=== PATIENT | female | born 1935 | race Caucasian/White ===

== ENCOUNTER 2017-12-24 16:40 | Inpatient (IN) | payer MEDICARE ==
[~2017-12-24] VITALS: Ht 154.9 cm; Wt 62.1 kg
[2017-12-24] MEDS ORDERED: Z GUARD REMEDY PASTE 57 GM TUBE TOP PRN (17:45)
[2017-12-24] MEDS ORDERED: ROSU5TAB PO (18:29)
[2017-12-24] MEDS ORDERED: WARF-68 PO (18:29)
[2017-12-24] MEDS ORDERED: LEVO50TA8 PO (18:29)
[2017-12-24 18:37] VITALS: BP 113/59
--- NOTE | 2017-12-24 18:58 | NUR ---
pt admitted from stow. report taken from ying KENNY. pt vitals assessed and stable. all pertinent assessments done. swab done . pt seen by md and states he will do the med recon. will endorse to table games shift manager nrse.
--- NOTE | 2017-12-24 19:55 | NUR ---
Pt resting comfortably in bed. AAO x3. No acute distress noted. No c/o pain or discomfort. Bruises on some parts of the body. Pictures taken. Safety measures maintained. Call light and personal belongings within reach. Will continue to monitor.
[2017-12-24 20:13] VITALS: BP 120/62
[2017-12-24] MEDS: ATORVASTATIN 10 MG TABLET PO SCH (21:12)
--- NOTE | 2017-12-25 05:45 | NUR ---
Pt slept comfortably at night. VSS. Meds given per MD's order. Pt compliant with care. All needs attended to promptly. Will endorse to day shift RN. Continue to monitor.
[2017-12-25] MEDS: LEVOTHYROXINE SODIUM 50 MCG TABLET PO SCH (06:31)
[2017-12-25 07:02] LABS: BASOPHILS # (AUTO) 0.1 K/uL (0.0-8.0); EOSINOPHILS # (AUTO) 0.3 K/uL (0.0-0.7); EOSINOPHILS % (AUTO) 3.9 % (0.0-7.0); HEMATOCRIT 30.9 % (31.2-41.9); HEMOGLOBIN 10.5 g/dL (10.9-14.3); LYMPHOCYTES % (AUTO) 11.3 % (20.5-51.5); MEAN CORPUSCULAR HEMOGLOBIN 33.8 uug (24.7-32.8); MEAN CORPUSCULAR HGB CONC 34 g/dL (32.3-35.6); MEAN CORPUSCULAR VOLUME 99.3 fL (75.5-95.3); MONOCYTES # (AUTO) 0.8 K/uL (2.0-10.0); NEUTROPHILS # (AUTO) 6.5 K/uL (1.8-8.9); NEUTROPHILS % (AUTO) 74.8 % (38.5-71.5); PLATELET COUNT (AUTO) 218 K/uL (179-408); RED BLOOD CELL COUNT(AUTO) 3.11 MIL/uL (3.63-4.92); WHITE BLOOD COUNT (AUTO) 8.7 K/uL (3.8-11.8)
[2017-12-25 07:10] VITALS: BP 120/71
[2017-12-25 07:29] LABS: MAGNESIUM 1.7 mg/dL (1.8-2.4); PHOSPHOROUS 3.4 mg/dL (2.5-4.9)
[2017-12-25 07:31] LABS: ALANINE AMINOTRANSFERASE 33 U/L (14-59); ALKALINE PHOSPHATASE 56 U/L (50-136); ASPARTATE AMINOTRANSFERASE 31 U/L (15-37); BILIRUBIN,TOTAL 1.3 mg/dL (0.2-1.0); CARBON DIOXIDE 28 mmol/L (21-32); CHLORIDE 107 mmol/L (98-107); CREATININE 0.9 mg/dL (0.6-1.3); GLUCOSE 90 mg/dL (74-106); POTASSIUM 3.9 mmol/L (3.5-5.1); TOTAL PROTEIN, SERUM 5.7 g/dL (6.4-8.2); UREA NITROGEN, BLOOD 20 mg/dL (7-18)
[2017-12-25] MEDS ORDERED: LEVOTHYROXINE SODIUM 50 MCG TABLET PO SCH (09:00)
[2017-12-25] MEDS ORDERED: Medication Not On Formulary EA (Rosuvastatin Calcium (Crestor) 5 MG) PO SCH (09:00)
--- NOTE | 2017-12-25 10:10 | NUR ---
Pt seen on the wheelchair with physical therapist on the floor.
[2017-12-25] MEDS: BOOST PLUS 237 ML LIQUID (RICH CHOCOLATE) PO SCH ×2 (12:34→16:33)
[2017-12-25] MEDS ORDERED: MAGNESIUM OXIDE 400 MG TABLET PO ONE (13:15)
[2017-12-25] MEDS ORDERED: WARF-68 PO (14:25)
[2017-12-25] MEDS ORDERED: WARF4TAB72 PO (14:25)
--- NOTE | 2017-12-25 16:23 | NUR ---
Spoke with Dr. Corona on the telephone regarding pt's complaint of generalized pain. New orders received and carried out.
[2017-12-25] MEDS: ACETAMINOPHEN 325 MG TABLET PO PRN (16:31)
[2017-12-25] MEDS ORDERED: WARFARIN SODIUM 2 MG TABLET PO SCH ×2 (17:00)
--- NOTE | 2017-12-25 19:35 | NUR ---
Received patient in bed, awake and verbally responsive. Vital signs taken and recorded. No sob, or acute distress noted. Denies of pain at this time. Safety measures provided. Bed placed in low position. Bed alarm on. Call light within reach. will continue to monitor patient.
[2017-12-25] MEDS: ATORVASTATIN 10 MG TABLET PO SCH (20:41)
[2017-12-25] MEDS: ENOXAPARIN SODIUM 60 MG/0.6 ML DISP.SYRIN SQ SCH ×2 (20:45→21:00)
[2017-12-25 20:57] VITALS: BP 106/56
--- NOTE | 2017-12-25 21:03 | NUR ---
Patient refused the lovenox injection. Seen by MD Dr. Miles. Per , hold lovenox injection.
[2017-12-26] MEDS: LEVOTHYROXINE SODIUM 50 MCG TABLET PO SCH (06:32)
[2017-12-26 08:00] VITALS: BP 134/73
[2017-12-26] MEDS: ENOXAPARIN SODIUM 60 MG/0.6 ML DISP.SYRIN SQ SCH ×2 (09:00→20:27)
[2017-12-26] MEDS: BOOST PLUS 237 ML LIQUID (RICH CHOCOLATE) PO SCH ×2 (09:34→17:52)
--- NOTE | 2017-12-26 10:23 | NUR ---
PATIENT NOTED SITTING UP ON SIDE OF THE BED, NO COMPLAINTS OF PAIN NO SIGNS OF DISTRESS NOTED, CALL LIGHT IN REACH, BED LOCKED AND IN LOWEST POSITION, X2 BED RAILS, ALL NEEDS MET AT THIS TIME, REFUSED LOVENOX INJECTION FOR AM ADMINISTRATION
--- NOTE | 2017-12-26 14:39 | NUR ---
X-RAY RESULTS OF RIGHT SHOULDER SHOWERS COMMINUTED FRACTURE AND DISLOCATION OF RIGHT CLAVICLE , MD HENAO NOTIFIED WITH ORDERS TO PLACE RIGHT ARM IN SLING AND ORTHO CONSULT
[2017-12-26] MEDS: ACETAMINOPHEN 325 MG TABLET PO PRN ×2 (14:44→20:40)
[2017-12-26] MEDS: WARFARIN SODIUM 4 MG TABLET PO SCH (17:54)
[2017-12-26 19:55] VITALS: BP 109/57
--- NOTE | 2017-12-26 20:00 | NUR ---
Received pt lying comfortably in bed, awake and alert. Daughter at bedside. No acute distress noted. Pt complained of pain on her left antecubital, upon assessment, redness and swelling was noted. MD made aware. Picture taken and placed on chart. All due meds given as ordered and well tolerated. Vital signs stable. Kept clean, dry and comfortable. encouraged to verbalize needs and concerns and to call for assistance if needed. Call light placed within reach. All needs attended.
[2017-12-26] MEDS: ATORVASTATIN 10 MG TABLET PO SCH (20:27)
--- NOTE | 2017-12-26 21:33 | NUR ---
physically impaired teacher MD (Dr. Corona) ordered xray left forearm. Order carried out. Will continue to monitor pt.
--- NOTE | 2017-12-27 05:51 | NUR ---
Patient slept well throughout the shift with no signs/symptoms of acute distress noted. No complaints of pain or discomfort. No SOB. Assisted to the bathroom as needed. Kept clean, dry and comfortable. Call light placed within reach. Safety and fall precautions observed and maintained. All needs attended.
[2017-12-27] MEDS: LEVOTHYROXINE SODIUM 50 MCG TABLET PO SCH (06:30)
--- NOTE | 2017-12-27 07:24 | NUR ---
Patient noted resting in bed with eyes closed arouses easily, no complaints of pain at this time, no distress noted, call light in reach, bed locked and in lowest position, x 2 bed rails, all needs met at this time Addendum: 12/27/17 at 0725 by GAVIN ORTIZ RN sling to right arm in place
[2017-12-27] MEDS: ENOXAPARIN SODIUM 60 MG/0.6 ML DISP.SYRIN SQ SCH ×2 (08:14→20:39)
[2017-12-27] MEDS: BOOST PLUS 237 ML LIQUID (RICH CHOCOLATE) PO SCH ×2 (08:15→17:00)
[2017-12-27 08:17] VITALS: BP 134/83
[2017-12-27] MEDS: ACETAMINOPHEN 325 MG TABLET PO PRN ×2 (09:39→23:21)
--- NOTE | 2017-12-27 15:10 | NUR ---
x-ray to left forearm concludes that there aren't any fractures or dislocations, MD Corona notified of results and ordered Bactrim DS 1 tab PO BID for 7 days
[2017-12-27] MEDS: WARFARIN SODIUM 4 MG TABLET PO SCH (19:07)
--- NOTE | 2017-12-27 19:35 | NUR ---
Received pt in bed, AAO x 3 watching television. Verbally responsive and able to make needs known. Denies pain or discomfort at this time. No acute distress noted. All safety measures and fall precautions maintained. Call light and all personal belongings within reach. Will continue to monitor.
[2017-12-27 20:30] VITALS: BP 141/66
[2017-12-27] MEDS: ATORVASTATIN 10 MG TABLET PO SCH (20:38)
[2017-12-27] MEDS: SULFAMETH/TRIMETH 800/160 MG TABLET PO SCH (20:38)
[2017-12-28] MEDS: LEVOTHYROXINE SODIUM 50 MCG TABLET PO SCH (06:30)
[2017-12-28 08:00] VITALS: BP 120/75
--- NOTE | 2017-12-28 08:00 | NUR ---
Received patient awake alert x4. Resting in bed. Denies any pain. Arm sling over right shoulder in place. Morning care done. Adult brief changed with minimal assistance. Non in any distress, call light within reach.
[2017-12-28] MEDS: SULFAMETH/TRIMETH 800/160 MG TABLET PO SCH ×2 (08:29→20:36)
[2017-12-28] MEDS: BOOST PLUS 237 ML LIQUID (RICH CHOCOLATE) PO SCH ×2 (08:29→17:49)
[2017-12-28] MEDS: ENOXAPARIN SODIUM 60 MG/0.6 ML DISP.SYRIN SQ SCH ×2 (08:30→20:42)
--- NOTE | 2017-12-28 10:00 | NUR ---
Up with occupational therapy tolerating well. Instructed to maintain non-weight bearing status on right shoulder.
--- NOTE | 2017-12-28 13:45 | NUR ---
INTERDISCIPLINARY TEAM CONFERENCE
[2017-12-28] MEDS ORDERED: WARFARIN SODIUM 2 MG TABLET PO SCH (17:37)
[2017-12-28] MEDS: WARFARIN SODIUM 2 MG TABLET PO SCH (17:47)
--- NOTE | 2017-12-28 18:42 | NUR ---
Patient resting in bed. Not in any pain. Assisted to needs promptly. Call light within reach.
[2017-12-28 19:30] VITALS: BP 114/60
--- NOTE | 2017-12-28 19:30 | NUR ---
Received pt in bed, appearing to be asleep but easily arousable to verbal stimuli and light touch. Verbally responsive and able to make needs known. No acute distress noted. Denies pain or discomfort at this time. All safety measures and fall precautions maintained. Call light and all personal belongings within reach. Will continue to monitor.
[2017-12-28] MEDS: ATORVASTATIN 10 MG TABLET PO SCH (20:36)
[2017-12-29] MEDS: LEVOTHYROXINE SODIUM 50 MCG TABLET PO SCH (06:37)
[2017-12-29] MEDS: SULFAMETH/TRIMETH 800/160 MG TABLET PO SCH ×2 (08:06→20:23)
[2017-12-29] MEDS: BOOST PLUS 237 ML LIQUID (RICH CHOCOLATE) PO SCH ×2 (08:12→16:18)
[2017-12-29] MEDS: ENOXAPARIN SODIUM 60 MG/0.6 ML DISP.SYRIN SQ SCH ×2 (08:12→20:25)
[2017-12-29 08:20] VITALS: BP 119/69
--- NOTE | 2017-12-29 09:33 | NUR ---
SBAR report received, board updated. Pt assessed, denies pain. Reminded Pt to keep right arm in sling and use left to eat. Pt compliant with all morning medications. Will follow up with Pt request to shower. All needs met. Call light within reach. Will continue to monitor.
[2017-12-29] MEDS: WARFARIN SODIUM 2 MG TABLET PO SCH (16:23)
--- NOTE | 2017-12-29 18:44 | NUR ---
Pt resting in bed, assisted to reposition for comfort. Pt dry and clean. Pt compliant with routine medication administration. All needs attended to. Will continue to monitor and endorse to oncoming maintenance technician 3rd shift.
--- NOTE | 2017-12-29 19:30 | NUR ---
Received patient in bed. Alert and verbally responsive. Able to make needs known. Denies any pain and discomfort. No acute distress. No SOB. Sling applied to right forearm. No c/o pain and discomfort at site at this time. Assisted to bathroom. Tolerated well. All needs attended to promptly. Call light within reach. Will continue to monitor.
[2017-12-29 20:00] VITALS: BP 134/65
[2017-12-29] MEDS: ATORVASTATIN 10 MG TABLET PO SCH (20:23)
--- NOTE | 2017-12-30 06:15 | NUR ---
Patient slept comfortably throughout the night. No c/o pain and discomfort. No acute distress. No SOB. Assisted to the bathroom when needed. Kept clean and dry. All needs attended to promptly. Call light within reach. Will continue to monitor.
[2017-12-30] MEDS: LEVOTHYROXINE SODIUM 50 MCG TABLET PO SCH (06:34)
[2017-12-30 07:30] VITALS: BP 126/67
[2017-12-30] MEDS: BOOST PLUS 237 ML LIQUID (RICH CHOCOLATE) PO SCH ×2 (08:36→16:43)
[2017-12-30] MEDS: SULFAMETH/TRIMETH 800/160 MG TABLET PO SCH ×2 (08:36→21:19)
[2017-12-30] MEDS: ENOXAPARIN SODIUM 60 MG/0.6 ML DISP.SYRIN SQ SCH (08:38)
--- NOTE | 2017-12-30 09:43 | NUR ---
pt seen on rounding. pt continues to be stable. vitals wnl. sling applied. non weight bearing on arm. pt walks with cane. pt took meds whole. pt given lovenox injection. awaiting labs. pt participated in therapy and ate breakfast. will continue to monitor.
[2017-12-30] MEDS: WARFARIN SODIUM 2 MG TABLET PO SCH (16:43)
--- NOTE | 2017-12-30 19:00 | NUR ---
Received patient in bed. Alert and verbally responsive. Able to make needs known. Denies any pain and discomfort. No acute distress. No SOB. Sling applied to right arm. Remind patient that she needs to keep arm in sling, verbalizes understanding but arm still comes out of it. Ambulates with walker. Assisted to the bathroom. Tolerated well. All needs attended to promptly. Call light within reach. Will continue to monitor.
[2017-12-30 20:00] VITALS: BP 129/77
[2017-12-30] MEDS: ATORVASTATIN 10 MG TABLET PO SCH (21:16)
[2017-12-31] MEDS: ACETAMINOPHEN 325 MG TABLET PO PRN (06:38)
[2017-12-31] MEDS: PANTOPRAZOLE SODIUM 40 MG TABLET.DR PO SCH (06:38)
[2017-12-31] MEDS: LEVOTHYROXINE SODIUM 50 MCG TABLET PO SCH (06:38)
--- NOTE | 2017-12-31 07:00 | NUR ---
Patient slept intermittently throughout the night. Tylenol given for c/o back pain. Assisted to bathroom with needed. Amb with FWW. Kept clean and dry. All needs attended to promptly. Call light within reach. Will continue to monitor.
[2017-12-31 07:44] LABS: BASOPHILS # (AUTO) 0.1 K/uL (0.0-8.0); BASOPHILS % (AUTO) 1.2 % (0.0-2.0); EOSINOPHILS # (AUTO) 0.2 K/uL (0.0-0.7); EOSINOPHILS % (AUTO) 2.1 % (0.0-7.0); HEMATOCRIT 29.8 % (31.2-41.9); HEMOGLOBIN 10.2 g/dL (10.9-14.3); LYMPHOCYTES # (AUTO) 0.6 K/uL (20.0-40.0); LYMPHOCYTES % (AUTO) 7.1 % (20.5-51.5); MEAN CORPUSCULAR HEMOGLOBIN 34.1 uug (24.7-32.8); MEAN CORPUSCULAR HGB CONC 34 g/dL (32.3-35.6); MEAN CORPUSCULAR VOLUME 99.7 fL (75.5-95.3); MONOCYTES # (AUTO) 0.9 K/uL (2.0-10.0); MONOCYTES % (AUTO) 10.9 % (0.0-11.0); NEUTROPHILS # (AUTO) 6.4 K/uL (1.8-8.9); NEUTROPHILS % (AUTO) 78.7 % (38.5-71.5); RED BLOOD CELL COUNT(AUTO) 2.99 MIL/uL (3.63-4.92); WHITE BLOOD COUNT (AUTO) 8.1 K/uL (3.8-11.8)
[2017-12-31 08:00] LABS: PLATELET COUNT (AUTO) 285 K/uL (179-408)
[2017-12-31 08:20] LABS: ALANINE AMINOTRANSFERASE 75 U/L (14-59); ALKALINE PHOSPHATASE 101 U/L (50-136); ASPARTATE AMINOTRANSFERASE 96 U/L (15-37); BILIRUBIN,TOTAL 0.9 mg/dL (0.2-1.0); CARBON DIOXIDE 26 mmol/L (21-32); CHLORIDE 104 mmol/L (98-107); CREATININE 1.1 mg/dL (0.6-1.3); GLUCOSE 95 mg/dL (74-106); MAGNESIUM 2.1 mg/dL (1.8-2.4); PHOSPHOROUS 3.5 mg/dL (2.5-4.9); POTASSIUM 4.1 mmol/L (3.5-5.1); TOTAL PROTEIN, SERUM 6.1 g/dL (6.4-8.2); UREA NITROGEN, BLOOD 19 mg/dL (7-18)
[2017-12-31] MEDS: FERROUS GLUCONATE 324 MG TABLET PO SCH (08:41)
[2017-12-31] MEDS: SULFAMETH/TRIMETH 800/160 MG TABLET PO SCH ×2 (08:41→21:21)
[2017-12-31] MEDS: BOOST PLUS 237 ML LIQUID (RICH CHOCOLATE) PO SCH ×2 (08:45→17:17)
[2017-12-31] MEDS: WARFARIN SODIUM 2 MG TABLET PO SCH (17:17)
--- NOTE | 2017-12-31 18:59 | NUR ---
Pt comfortably sitting in bed, repositioned for comfort. Reinforced need to use sling. VS WNL. All safety and comfort needs met. No distress on this shift. Call light within reach. Will continue to monitor and endorse to oncoming manual equipment mechanic.
[2017-12-31 19:30] VITALS: BP 108/65
--- NOTE | 2017-12-31 20:00 | NUR ---
received pt lying on bed comfortably, awake and alert with no apparent distress noted. No complaints of pain or discomfort. Breathing even and unlabored with normal respiration. All due meds given as ordered and well tolerated. Assisted to the bathroom as needed. Call light within reach. All needs attended.
[2017-12-31] MEDS: ATORVASTATIN 10 MG TABLET PO SCH (21:21)
[2018-01-01] MEDS: PANTOPRAZOLE SODIUM 40 MG TABLET.DR PO SCH (06:29)
[2018-01-01] MEDS: LEVOTHYROXINE SODIUM 50 MCG TABLET PO SCH (06:29)
[2018-01-01 08:00] VITALS: BP 120/67
[2018-01-01] MEDS: FERROUS GLUCONATE 324 MG TABLET PO SCH (08:16)
[2018-01-01] MEDS: BOOST PLUS 237 ML LIQUID (RICH CHOCOLATE) PO SCH ×2 (08:16→17:01)
[2018-01-01] MEDS: SULFAMETH/TRIMETH 800/160 MG TABLET PO SCH ×2 (08:16→20:09)
--- NOTE | 2018-01-01 09:00 | NUR ---
PT IS STABLE Addendum: 01/01/18 at 1056 by ELIZABETH ALLEN RN WRONG PT
--- NOTE | 2018-01-01 11:13 | NUR ---
SBAR report received, board updated. Pt assessed, awake, alert, and oriented x3. Pt denies pain or SOB. Pt compliant with medication administration. Plan for today discussed. Pt reports willingness to actively participate with therapies. Sling repositioned. Bed in low, locked position with side rails up x2. All comfort and safety measures implemented. Call light within reach. Will continue to monitor.
[2018-01-01] MEDS ORDERED: WARFARIN SODIUM 4 MG TABLET PO ONE (17:00)
--- NOTE | 2018-01-01 18:56 | NUR ---
Pt sitting comfortably up in bed with daughter at the bedside visiting. Pt able to make needs known. Compliant with routine medication administration. All comfort and safety needs met. Call light placed within reach. Will continue to monitor and endorse to oncoming third shift lieutenant.
[2018-01-01] MEDS: ENOXAPARIN SODIUM 60 MG/0.6 ML DISP.SYRIN SQ SCH (20:09)
[2018-01-01] MEDS: ATORVASTATIN 10 MG TABLET PO SCH (20:10)
[2018-01-01 20:46] VITALS: BP 105/68
--- NOTE | 2018-01-02 03:46 | NUR ---
AAOX4 with periods of forgetfulness. no acute distress noted. quiet night. attended to needs. on lovenox given as ordered. denies any pain nor any discomfort. will monitor patient. slept well throughout the night. voiding well. vital signs stable.
[2018-01-02] MEDS: PANTOPRAZOLE SODIUM 40 MG TABLET.DR PO SCH (06:30)
[2018-01-02] MEDS: LEVOTHYROXINE SODIUM 50 MCG TABLET PO SCH (06:30)
--- NOTE | 2018-01-02 08:35 | NUR ---
Received patient awake, alert x4. Denies any pain. Tolerated breakfast and medications well. Instructed to maintain sling over shoulder and maintain non-weight bearing status.
[2018-01-02] MEDS: BOOST PLUS 237 ML LIQUID (RICH CHOCOLATE) PO SCH ×2 (08:38→17:02)
[2018-01-02] MEDS: ENOXAPARIN SODIUM 60 MG/0.6 ML DISP.SYRIN SQ SCH ×2 (08:38→20:30)
[2018-01-02] MEDS: FERROUS GLUCONATE 324 MG TABLET PO SCH (08:38)
[2018-01-02 08:45] VITALS: BP 115/65
--- NOTE | 2018-01-02 10:03 | NUR ---
Showered with minimum assistance. Morning care done.
--- NOTE | 2018-01-02 14:06 | NUR ---
With family at bedside. Patient refuses to have therapy today. No pain noted, not in distress. Vital signs WNL.
[2018-01-02] MEDS ORDERED: BISACODYL 5 MG TABLET.DR PO PRN (15:45)
--- NOTE | 2018-01-02 16:16 | NUR ---
No bowel movement. Patient claimed she had a bowel movement yesterday. Offered Dulcolax, patient refused.
[2018-01-02] MEDS: WARFARIN SODIUM 4 MG TABLET PO SCH (17:02)
[2018-01-02] MEDS: ATORVASTATIN 10 MG TABLET PO SCH (20:28)
[2018-01-02 20:34] VITALS: BP 107/65
--- NOTE | 2018-01-02 21:43 | NUR ---
awake alert and oriented but forgetful at times. no acute distress noted. patient on blood thinner, on coumadin and lovenox. needs attended. seen by Dr Serrano. Was aware of PT/INR results. No order made. Kept comfortable. tolerated po meds well. RUE sling on but sometimes non-compliant, always removed the sling off the shoulder. voiding well.
--- NOTE | 2018-01-03 05:33 | NUR ---
quiet night. slept most of the shift. no acute distress noted. kept comfortable. will monitor patient. denies any pain nor any discomfort.
[2018-01-03] MEDS: PANTOPRAZOLE SODIUM 40 MG TABLET.DR PO SCH (06:30)
[2018-01-03] MEDS: LEVOTHYROXINE SODIUM 50 MCG TABLET PO SCH (06:31)
[2018-01-03 08:02] LABS: BASOPHILS # (AUTO) 0.1 K/uL (0.0-8.0); BASOPHILS % (AUTO) 1.1 % (0.0-2.0); EOSINOPHILS # (AUTO) 0.2 K/uL (0.0-0.7); EOSINOPHILS % (AUTO) 1.9 % (0.0-7.0); HEMATOCRIT 29.7 % (31.2-41.9); HEMOGLOBIN 10.2 g/dL (10.9-14.3); LYMPHOCYTES # (AUTO) 0.6 K/uL (20.0-40.0); LYMPHOCYTES % (AUTO) 7.8 % (20.5-51.5); MEAN CORPUSCULAR HEMOGLOBIN 34.4 uug (24.7-32.8); MEAN CORPUSCULAR HGB CONC 34 g/dL (32.3-35.6); MONOCYTES # (AUTO) 0.7 K/uL (2.0-10.0); MONOCYTES % (AUTO) 8.2 % (0.0-11.0); NEUTROPHILS # (AUTO) 6.6 K/uL (1.8-8.9); PLATELET COUNT (AUTO) 285 K/uL (179-408); RED BLOOD CELL COUNT(AUTO) 2.97 MIL/uL (3.63-4.92); WHITE BLOOD COUNT (AUTO) 8.1 K/uL (3.8-11.8)
--- NOTE | 2018-01-03 08:15 | NUR ---
Received patient awake, alert x4. Not in any pain, afebrile. Arm sling in place over right shoulder.
[2018-01-03 08:25] LABS: ALANINE AMINOTRANSFERASE 53 U/L (14-59); ALKALINE PHOSPHATASE 119 U/L (50-136); ASPARTATE AMINOTRANSFERASE 49 U/L (15-37); BILIRUBIN,TOTAL 0.9 mg/dL (0.2-1.0); CARBON DIOXIDE 27 mmol/L (21-32); CHLORIDE 104 mmol/L (98-107); CREATININE 1.1 mg/dL (0.6-1.3); GLUCOSE 89 mg/dL (74-106); PHOSPHOROUS 3.6 mg/dL (2.5-4.9); POTASSIUM 4.2 mmol/L (3.5-5.1); TOTAL PROTEIN, SERUM 6.5 g/dL (6.4-8.2)
[2018-01-03 08:36] LABS: UREA NITROGEN, BLOOD 26 mg/dL (7-18)
[2018-01-03] MEDS: FERROUS GLUCONATE 324 MG TABLET PO SCH (08:49)
[2018-01-03] MEDS: ENOXAPARIN SODIUM 60 MG/0.6 ML DISP.SYRIN SQ SCH ×2 (08:51→21:16)
[2018-01-03] MEDS: BOOST PLUS 237 ML LIQUID (RICH CHOCOLATE) PO SCH ×2 (08:52→16:49)
[2018-01-03 09:55] VITALS: BP 92/65
--- NOTE | 2018-01-03 10:58 | NUR ---
With family at bedside. Resting in bed. Bed in low locked position, call light within reach. Encouraged to call for needs.
[2018-01-03] MEDS: ACETAMINOPHEN 325 MG TABLET PO PRN (12:06)
--- NOTE | 2018-01-03 12:18 | NUR ---
Right rib pain rated as 6/10. PRN Tylenol given.
[2018-01-03] MEDS: WARFARIN SODIUM 4 MG TABLET PO SCH (16:48)
--- NOTE | 2018-01-03 18:33 | NUR ---
No bowel movement. Offered Dulcolax PRN. Patient refused. Discussed risks and benefits, but patient still refused.
--- NOTE | 2018-01-03 19:30 | NUR ---
Patient in bed, awake and verbally responsive. Vital signs taken and recorded. No sob, or acute respiratory distress noted. Denies of pain at this time. Seen by Dr. Ginger HUNTER no new orders. Safety measures provided. Bed placed in low position. Bed alarm on. Call light within reach. will continue to monitor patient.
[2018-01-03 19:59] VITALS: BP 104/61
[2018-01-03] MEDS: ATORVASTATIN 10 MG TABLET PO SCH (21:09)
[2018-01-04] MEDS: LEVOTHYROXINE SODIUM 50 MCG TABLET PO SCH (06:16)
[2018-01-04] MEDS: PANTOPRAZOLE SODIUM 40 MG TABLET.DR PO SCH (06:20)
--- NOTE | 2018-01-04 06:21 | NUR ---
Patient refused to take her Protonix 40 mg PO. Explained to the patient the benefits of taking this med and the risks of not taking it, offered 3x but still patient refused. Will endorse to Am shift nurse.
[2018-01-04] MEDS: FERROUS GLUCONATE 324 MG TABLET PO SCH (08:24)
[2018-01-04] MEDS: BOOST PLUS 237 ML LIQUID (RICH CHOCOLATE) PO SCH ×2 (08:24→17:27)
[2018-01-04] MEDS: ENOXAPARIN SODIUM 60 MG/0.6 ML DISP.SYRIN SQ SCH ×2 (08:25→20:29)
[2018-01-04 10:52] VITALS: BP 121/72
[2018-01-04] MEDS ORDERED: WARFARIN SODIUM 3 MG TABLET PO ONE (17:00)
[2018-01-04] MEDS ORDERED: WARFARIN SODIUM 2 MG TABLET PO SCH (17:00)
--- NOTE | 2018-01-04 18:25 | NUR ---
END OF SHIFT NOTES: PATIENT ALERT AND ORIENTED, ABLE TO MAKE NEEDS KNOWN HAS NO ACUTE CHANGES THROUGHOUT THE SHIFT. NO CHANGES IN LOC OR MENTATION. NO S/SX OF INFECTION REMAINED AFEBRILE. PATIENT REMAINED TO BE NON-COMPLIANT WITH HER SLING. EXPLAINED RISKS AND BENEFITS SEVERAL TIMES BUT PATIENT REFUSED TO USE HER SLING. ALSO PATIENT WAS GIVEN COUMADIN 6 MG TAB PO TODAY ORDERED. PATIENT'S DAUGHTER TRISHA WITH TELEPHONE NUMBER: AND INFORMED OF THE DOSAGE. HOURLY ROUNDING DONE. CALL LIGHT WITHIN REACH AT ALL TIMES. BED ALARM ON FOR SAFETY. ENCOURAGED PATIENT TO USE CALL LIGHT WHENEVER ASSISTANCE IS NEEDED. WILL CONTINUE TO MONITOR. WILL ENDORSE TO INCOMING SHIFT.
--- NOTE | 2018-01-04 20:00 | NUR ---
Received pt on bed alert, awake and oriented x3. Pleasant, calm and cooperative to care. No signs/symptoms of distress noted. No complaints of pain or discomfort. No SOB noted. All due meds given as ordered. Vital signs stable. Kept clean, dry and comfortable. Safety and fall precautions maintained. Call light within reach. All needs attended.
[2018-01-04 20:22] VITALS: BP 108/58
[2018-01-04] MEDS: ATORVASTATIN 10 MG TABLET PO SCH (20:27)
[2018-01-05] MEDS: LEVOTHYROXINE SODIUM 50 MCG TABLET PO SCH (06:27)
[2018-01-05] MEDS: PANTOPRAZOLE SODIUM 40 MG TABLET.DR PO SCH (06:28)
--- NOTE | 2018-01-05 07:15 | NUR ---
RECEIVED REPORT FROM STRADDLE BUG NURSE, PATIENT SITTING UP IN BED, NO DISTRESS NOTED. PATIENT REFUSING PT SHE IS DISCHARGING TODAY.
[2018-01-05] MEDS: BOOST PLUS 237 ML LIQUID (RICH CHOCOLATE) PO SCH (08:00)
[2018-01-05 08:28] VITALS: BP 100/84
[2018-01-05] MEDS: FERROUS GLUCONATE 324 MG TABLET PO SCH (09:02)
[2018-01-05] MEDS: ENOXAPARIN SODIUM 60 MG/0.6 ML DISP.SYRIN SQ SCH (09:07)
--- NOTE | 2018-01-05 15:40 | NUR ---
PATIENT WAS DISCHARGED, ALL BELONGINGS ACCOUNTED FOR, PATIENT EDUCATION PROVIDED.
[2018-01-05 16:21] VITALS: BP 155/84
[2018-01-05] MEDS ORDERED: FERR325T28 PO (17:04)
[2018-01-05] MEDS ORDERED: ENOX40DI SQ (17:04)
[2018-01-05] MEDS ORDERED: WARF2TAB57 PO (17:04)
[2018-01-05] MEDS ORDERED: RXENO SQ (17:04)
[2018-01-05] MEDS ORDERED: BISA-79 PO (17:04)
[2018-01-05] MEDS ORDERED: ATOR10TA PO (17:04)
[2018-01-05] MEDS ORDERED: ACET-2154 PO (17:04)
[2018-01-05] MEDS ORDERED: PANT40TA2 PO (17:04)
[2018-01-05] MEDS ORDERED: WARF4TAB41 PO (17:04)
[2018-01-05] MEDS ORDERED: LACT-15 PO (17:04)
[2018-01-06] MEDS ORDERED: WARFARIN SODIUM 2 MG TABLET PO SCH (17:00)
== END 2018-01-05 15:45 | disposition short-term general hospital (02) | DRG 70 ==
PROVIDERS: ADMIT Physical Medicine & Rehabilitation Pain Medicine; ATTEND Physical Medicine & Rehabilitation Pain Medicine
DX: G93.41 Metabolic encephalopathy (principal); E43 Unspecified severe protein-calorie malnutrition; I48.2 Chronic atrial fibrillation; G91.2 (Idiopathic) normal pressure hydrocephalus; D53.9 Nutritional anemia, unspecified; F03.90 Unspecified dementia, unspecified severity, without behavioral disturbance, psychotic disturbance, mood disturbance, and anxiety; S42.031A Displaced fracture of lateral end of right clavicle, initial encounter for closed fracture; L03.114 Cellulitis of left upper limb; W19.XXXA Unspecified fall, initial encounter; S60.222D Contusion of left hand, subsequent encounter; W19.XXXD Unspecified fall, subsequent encounter; I69.398 Other sequelae of cerebral infarction; E03.9 Hypothyroidism, unspecified; I10 Essential (primary) hypertension; R26.9 Unspecified abnormalities of gait and mobility; Z96.653 Presence of artificial knee joint, bilateral; Z95.2 Presence of prosthetic heart valve; R05 Cough; I25.10 Atherosclerotic heart disease of native coronary artery without angina pectoris; S80.12XD Contusion of left lower leg, subsequent encounter; S80.11XD Contusion of right lower leg, subsequent encounter; S40.022D Contusion of left upper arm, subsequent encounter; S40.021D Contusion of right upper arm, subsequent encounter; E61.1 Iron deficiency; E78.5 Hyperlipidemia, unspecified; I51.7 Cardiomegaly; Y93.9 Activity, unspecified; Y92.009 Unspecified place in unspecified non-institutional (private) residence as the place of occurrence of the external cause; Z79.01 Long term (current) use of anticoagulants; M48.00 Spinal stenosis, site unspecified
CPT/HCPCS: 36415; 70030-TC; 71045; 73020; 73090; 83735; 84100; 85025; 85610; 92523; 97110; 97112; 97116; 97165; 97530; 97535; A4663; J1650; J7050

== ENCOUNTER 2018-01-05 16:12 | Inpatient (IN) | payer MEDICARE ==
[~2018-01-05] VITALS: Ht 154.9 cm; Wt 59.0 kg
--- NOTE | 2018-01-05 15:20 | NUR ---
Received nursing report from Oswaldo LEDBETTER
--- NOTE | 2018-01-05 15:45 | NUR ---
Received pt via wheelchair guided by RN, UNION STEWARD , son and family member. No immediate s/s of distress or pain. MD aware of pt's arrival to the med-surg unit
[~2018-01-05 16:12] MED LIST: LEVO50TA8 PO; ROSU5TAB PO; WARF-68 PO; WARF4TAB72 PO
[2018-01-05 16:30] VITALS: BP 155/84
[2018-01-05] MEDS ORDERED: WARFARIN SODIUM 3 MG TABLET PO ONE (17:00)
[2018-01-05] MEDS ORDERED: ENOX40DI SQ (17:04)
[2018-01-05] MEDS ORDERED: WARF2TAB57 PO (17:04)
[2018-01-05] MEDS ORDERED: PANT40TA2 PO (17:04)
[2018-01-05] MEDS ORDERED: RXENO SQ (17:04)
[2018-01-05] MEDS ORDERED: WARF4TAB41 PO (17:04)
[2018-01-05] MEDS ORDERED: BISA-79 PO (17:04)
[2018-01-05] MEDS ORDERED: ACET-2154 PO (17:04)
[2018-01-05] MEDS ORDERED: ATOR10TA PO (17:04)
[2018-01-05] MEDS ORDERED: FERR325T28 PO (17:04)
[2018-01-05] MEDS ORDERED: LACT-15 PO (17:04)
[2018-01-05] MEDS: GUAIFENESIN/DEXTROMETHORPHAN 5 ML UDC PO PRN ×2 (17:33→22:59)
[2018-01-05] MEDS ORDERED: BISACODYL 5 MG TABLET.DR PO PRN (17:45)
[2018-01-05] MEDS ORDERED: ACETAMINOPHEN 325 MG TABLET PO PRN (17:45)
[2018-01-05] MEDS ORDERED: LEVALBUTEROL HCL NEB 0.63 MG/3 ML NEBU NEB PRN (18:00)
--- NOTE | 2018-01-05 18:00 | NUR ---
Pt has being changed from Med-Surg to tele, noted with A-fib, PVC and BBB
--- NOTE | 2018-01-05 18:15 | NUR ---
Chest xray in progess
--- NOTE | 2018-01-05 18:23 | NUR ---
EKG being done, request was made to RT to please start a breathing treatment after EKG is donee. End of shift notes: Pt was admitted to med-surg but was then placed on tele, pt is noted to have PVC, BBB and A-fib. Noted pt's O2 sat at 92-93% at RA and is now on 2L NC. Pt is also noted with labored breathing, SOB, wheezing and diminished bilateral lung sounds, pt is on high fowlers position. Cough medication and Coumadin given as ordered. Plan is to have her INR at 3.0 for a therapeutic level d/t a mechanical valve replacement. Bed at lowest position for safety and call light within reach for assistance. Pt was advised to use the call light.
--- NOTE | 2018-01-05 19:20 | NUR ---
RECEIVED PT AWAKE, ALERT, ORIENTEDX3.PT COUGHING. PT IV INTACT AND PATENT. CALL LIGHT WITHIN REACH. BED ALARM ON AND IN LOW POSITION. WILL CONTINUE TO MONITOR.
[2018-01-05] MEDS: ALBUTEROL SULFATE 1.25 MG/3 ML NEBU NEB PRN (19:22)
[2018-01-05 20:00] VITALS: BP 130/70
[2018-01-05] MEDS: DOCUSATE SODIUM 100 MG CAPSULE PO SCH (20:43)
[2018-01-05] MEDS: ATORVASTATIN 10 MG TABLET PO SCH (20:43)
[2018-01-05] MEDS ORDERED: ENOXAPARIN SODIUM 40 MG/0.4 ML DISP.SYRIN SQ SCH (21:00)
[2018-01-05] MEDS ORDERED: FUROSEMIDE 20 MG TABLET PO ONE (22:45)
[2018-01-06] VITALS: BP 121/75
[2018-01-06 04:00] VITALS: BP 110/62
[2018-01-06] MEDS: GUAIFENESIN/DEXTROMETHORPHAN 5 ML UDC PO PRN ×3 (06:00→20:41)
[2018-01-06] MEDS: LEVOTHYROXINE SODIUM 50 MCG TABLET PO SCH (06:00)
--- NOTE | 2018-01-06 06:25 | NUR ---
PT SLEPT THROUGHOUT THE SHIFT.PT IV INTACT AND PATENT.PT SHOWS NO SIGNS OF DISTRESS.PRESCRIBED MEDICATION GIVEN. PT TOLERATED IT WELL. CALL LIGHT WITHIN REACH. BED ALARM ON AND IN LOW POSITION. WILL ENDORSE TO DAYSHIFT NURSE.
--- NOTE | 2018-01-06 06:30 | NUR ---
PT ON TELE: A-FIB, MOST OF THE TIME CONTROLLED BASED ON END FINDER TWISTING DEPARTMENT OBSERVATION. PT REFUSED TO PUT IV SITE. AWARE OF THE SITUATION . ENDORSE TO DAYSHIFT NURSE.
[2018-01-06 07:07] LABS: ALANINE AMINOTRANSFERASE 40 U/L (14-59); ALKALINE PHOSPHATASE 119 U/L (50-136); ASPARTATE AMINOTRANSFERASE 39 U/L (15-37); BILIRUBIN,TOTAL 0.8 mg/dL (0.2-1.0); CARBON DIOXIDE 29 mmol/L (21-32); CHLORIDE 100 mmol/L (98-107); GLUCOSE 92 mg/dL (74-106); MAGNESIUM 1.8 mg/dL (1.8-2.4); PHOSPHOROUS 3.7 mg/dL (2.5-4.9); POTASSIUM 4.1 mmol/L (3.5-5.1); TOTAL PROTEIN, SERUM 6.8 g/dL (6.4-8.2); UREA NITROGEN, BLOOD 19 mg/dL (7-18)
[2018-01-06 07:26] LABS: BASOPHILS # (AUTO) 0.1 K/uL (0.0-8.0); BASOPHILS % (AUTO) 1.1 % (0.0-2.0); EOSINOPHILS # (AUTO) 0.1 K/uL (0.0-0.7); EOSINOPHILS % (AUTO) 1.2 % (0.0-7.0); HEMOGLOBIN 10.6 g/dL (10.9-14.3); LYMPHOCYTES # (AUTO) 0.7 K/uL (20.0-40.0); LYMPHOCYTES % (AUTO) 10.8 % (20.5-51.5); MEAN CORPUSCULAR HGB CONC 34 g/dL (32.3-35.6); MEAN CORPUSCULAR VOLUME 99.7 fL (75.5-95.3); MONOCYTES # (AUTO) 0.8 K/uL (2.0-10.0); MONOCYTES % (AUTO) 11.1 % (0.0-11.0); NEUTROPHILS # (AUTO) 5.1 K/uL (1.8-8.9); NEUTROPHILS % (AUTO) 75.8 % (38.5-71.5); PLATELET COUNT (AUTO) 283 K/uL (179-408); RED BLOOD CELL COUNT(AUTO) 3.11 MIL/uL (3.63-4.92); WHITE BLOOD COUNT (AUTO) 6.8 K/uL (3.8-11.8)
--- NOTE | 2018-01-06 07:30 | NUR ---
RECEIVED REPORT FROM FINANCIAL AID COUNSELOR NURSE, PATIENT IN BED ASLEEP, NO DISTRESS NOTED, BED IN LOW POSITION, SIDE RAILS UP X2, BED ALARM ON.
[2018-01-06] MEDS: FUROSEMIDE 20 MG TABLET PO SCH (09:07)
[2018-01-06] MEDS: PANTOPRAZOLE SODIUM 40 MG TABLET.DR PO SCH (09:07)
[2018-01-06] MEDS: BOOST PLUS 237 ML LIQUID (VERY VANILLA) PO SCH ×2 (09:07→16:30)
[2018-01-06] MEDS: FERROUS SULFATE 325 MG TABEC PO SCH (09:07)
[2018-01-06] MEDS: ENOXAPARIN SODIUM 60 MG/0.6 ML DISP.SYRIN SQ SCH ×2 (09:08→20:44)
[2018-01-06 11:57] VITALS: BP 124/49
[2018-01-06 15:28] VITALS: BP 106/58
[2018-01-06] MEDS: WARFARIN SODIUM 2 MG TABLET PO SCH (16:33)
--- NOTE | 2018-01-06 19:07 | NUR ---
Patient in bed awake, no distress noted, bed in low position, side rails up x2. bed alarm on. patient has been unpleasant with multiple complaints about the room, the service, the food. Spoke with daughter this morning and informed her that not having an IV in her arm makes rescue slower than it would normally take when we have an IV. Daughter acknowledged that and will try to talk to patient.
--- NOTE | 2018-01-06 19:15 | NUR ---
RECEIVED PT AWAKE, ALERT, ORIENTEDX2. PT SHOWS NO SIGNS OF DISTRESS. PT SAID HER COUGH IS IMPROVING. PT HAVE NO IV. EDUCATED THE PT THAT IF THERE'S NO IV IN CASE THERE'S EMERGENCY, THE RESCUE WILL BE SLOW INSTEAD OF HAVING IV ACCESS. PT STILL REFUSE TO HAVE IV. SHE SAID SHE'S OKAY. BED ALARM ON AND CALL LIGHT WITHIN REACH.WILL CONTINUE TO MONITOR.
[2018-01-06] MEDS: DOCUSATE SODIUM 100 MG CAPSULE PO SCH ×2 (20:40→21:00)
[2018-01-06] MEDS: ATORVASTATIN 10 MG TABLET PO SCH (20:40)
[2018-01-06 20:44] VITALS: BP 127/64
--- NOTE | 2018-01-06 21:02 | NUR ---
PATIENT REFUSED MEDICATION FOR COLACE. SHE SAID SHE HAD A BOWEL MOVEMENT THIS MORNING SO SHE DOESN'T NEED IT.
[2018-01-07 00:38] VITALS: BP 125/62
[2018-01-07 04:00] VITALS: BP 109/62
[2018-01-07] MEDS: GUAIFENESIN/DEXTROMETHORPHAN 5 ML UDC PO PRN (06:08)
[2018-01-07] MEDS: LEVOTHYROXINE SODIUM 50 MCG TABLET PO SCH (06:08)
--- NOTE | 2018-01-07 06:34 | NUR ---
PT SLEPT THROUGHOUT THE SHIFT. PT SHOWS NO SIGNS OF DISTRESS.PT IV INTACT AND PATENT. PRESCRIBED MEDICATION GIVEN. PT TOLERATED IT WELL. CALL LIGHT WITHIN REACH. BED ALARM ON AND IN LOW POSITION. SAFETY AND COMFORT PROVIDED. WILL ENDORSE TO DAYSHIFT NURSE.
[2018-01-07 07:19] LABS: BASOPHILS # (AUTO) 0.1 K/uL (0.0-8.0); BASOPHILS % (AUTO) 1.1 % (0.0-2.0); EOSINOPHILS # (AUTO) 0.2 K/uL (0.0-0.7); EOSINOPHILS % (AUTO) 2.1 % (0.0-7.0); HEMATOCRIT 33.6 % (31.2-41.9); HEMOGLOBIN 11.4 g/dL (10.9-14.3); LYMPHOCYTES # (AUTO) 1.2 K/uL (20.0-40.0); MEAN CORPUSCULAR HEMOGLOBIN 33.8 uug (24.7-32.8); MEAN CORPUSCULAR HGB CONC 34 g/dL (32.3-35.6); MEAN CORPUSCULAR VOLUME 99.4 fL (75.5-95.3); MONOCYTES # (AUTO) 0.8 K/uL (2.0-10.0); MONOCYTES % (AUTO) 10.9 % (0.0-11.0); NEUTROPHILS # (AUTO) 5.5 K/uL (1.8-8.9); NEUTROPHILS % (AUTO) 70.9 % (38.5-71.5); PLATELET COUNT (AUTO) 321 K/uL (179-408); RED BLOOD CELL COUNT(AUTO) 3.38 MIL/uL (3.63-4.92); WHITE BLOOD COUNT (AUTO) 7.7 K/uL (3.8-11.8)
[2018-01-07] MEDS: ALBUTEROL SULFATE 1.25 MG/3 ML NEBU NEB PRN (07:26)
--- NOTE | 2018-01-07 07:40 | NUR ---
RECEIVED IN BED AWAKE ALERT AND ORIENTED DENIES PAIN OR DISCOMFORTS AT THIS TIME SHE IS NOW SEATED AT THE EDGE OF THE BED BRUSHING HER TEETH STATED FEELS COMFORTABLE AND WILL CONTINUE TO OBSERVE.
[2018-01-07 07:56] LABS: CARBON DIOXIDE 32 mmol/L (21-32); CHLORIDE 98 mmol/L (98-107); GLUCOSE 92 mg/dL (74-106); MAGNESIUM 1.9 mg/dL (1.8-2.4); PHOSPHOROUS 3.4 mg/dL (2.5-4.9); UREA NITROGEN, BLOOD 21 mg/dL (7-18)
[2018-01-07] MEDS: FERROUS SULFATE 325 MG TABEC PO SCH (08:54)
[2018-01-07] MEDS: FUROSEMIDE 20 MG TABLET PO SCH (08:54)
[2018-01-07] MEDS: PANTOPRAZOLE SODIUM 40 MG TABLET.DR PO SCH (08:59)
[2018-01-07] MEDS: BOOST PLUS 237 ML LIQUID (VERY VANILLA) PO SCH ×2 (08:59→17:22)
--- NOTE | 2018-01-07 09:32 | NUR ---
INR AT THIS TIME IS 2.59 AND PATIENT IS ALSO ON COUMADIN UNSURE IF I SHOULD GIVEN LOVENOX 60 MILLIGRAM ORDERED CALLED AND SPOKE TO THE PHARMACIST AND THE RECOMMENDATION IS TO HOLD OFF ON GIVING THE LOVENOX FOR NOW AND SHE WILL CONFIRM WITH THE DOCTOR.
--- NOTE | 2018-01-07 11:28 | NUR ---
CALLED AND SPOKE WITH DR POLLACK RE INR OF 2.59 AND HE STATED TO DISCONTINUE THE LOVENOX ORDERED.
[2018-01-07 11:58] VITALS: BP 101/43
[2018-01-07 15:49] VITALS: BP 105/47
[2018-01-07] MEDS: WARFARIN SODIUM 2 MG TABLET PO SCH (16:37)
[2018-01-07] MEDS: CARVEDILOL 3.125 MG TABLET PO SCH (17:22)
--- NOTE | 2018-01-07 18:04 | NUR ---
COUMADIN GIVEN ORDERED WITH NO ADVERSE EFFECTS AT THIS TIME WILL CONTINUE TO OBSERVE.
--- NOTE | 2018-01-07 19:30 | NUR ---
RECEIVED PT IN BED. AAOX3, BUT FORGETFUL. DENIES ANY PAIN OR SOB AT THIS TIME. O2 SAT AT 94% ON RA. NOT IN ACUTE DISTRESS. A. FLUTTER AT 87/MIN ON TELE. SAFETY MEASURE INITIATED AND CALL DONOVAN WITHIN REACH.
[2018-01-07 20:00] VITALS: BP 105/61
[2018-01-07] MEDS: DOCUSATE SODIUM 100 MG CAPSULE PO SCH (21:08)
[2018-01-07] MEDS: ATORVASTATIN 10 MG TABLET PO SCH (21:08)
[2018-01-08] VITALS: BP 120/82
[2018-01-08 04:00] VITALS: BP 115/61
[2018-01-08] MEDS: LEVOTHYROXINE SODIUM 50 MCG TABLET PO SCH (06:02)
--- NOTE | 2018-01-08 06:39 | NUR ---
AOX3, WITH SOME FORGETFULNESS. DENIES ANY PAIN OR SOB ON RA. O2 SAT AT 93% ON RA. USES O2 AT 2LPM VIA NC PRN. NOTED WITH SPORADIC NON-PRODUCTIVE COUGH. LUNG SOUND DIMINISHED. IN NO ACUTE DISTRESS. A. FLUTTER ON TELE AT 90/MIN. SAFETY MEASURE MAINTAINED AND CALL DONOVAN WITHIN REACH.
--- NOTE | 2018-01-08 07:40 | NUR ---
RECEIVED PATIENT IN BED ASLEEP EASILY AROUSABLE ON ROUNDS PATIENT IS ON ROOM AIR AT THIS TIME WITH NO SHORTNESS OF BREATH.RESTING AND WITH NO DISTRESS AT THIS TIME AND WILL CONTINUE TO OBSERVE.
[2018-01-08] MEDS: FUROSEMIDE 20 MG TABLET PO SCH (08:32)
[2018-01-08] MEDS: CARVEDILOL 3.125 MG TABLET PO SCH (08:32)
[2018-01-08] MEDS: FERROUS SULFATE 325 MG TABEC PO SCH (08:33)
[2018-01-08] MEDS: PANTOPRAZOLE SODIUM 40 MG TABLET.DR PO SCH (08:33)
[2018-01-08] MEDS: BOOST PLUS 237 ML LIQUID (VERY VANILLA) PO SCH (08:37)
[2018-01-08 11:31] VITALS: BP 103/68
--- NOTE | 2018-01-08 12:00 | NUR ---
PATIENT IS EAGER AND ANXIOUS TO GO HOME TODAY BUT NO DISCHARGE ORDERS AT THIS TIME.ALSO AWAITING FOR PATIENTS DAUGHTER SHE IS COMING FROM OUT OF STATE.
--- NOTE | 2018-01-08 13:17 | NUR ---
NEW ORDERS NOTED TO DISCHARGE PATIENT HOME TODAY AND NOTED.
--- NOTE | 2018-01-08 14:03 | NUR ---
DISCHARGE INSTRUCTIONS GIVEN TO PATIENT AND ENCOURAGED TO CALL HER PRIMARY DOCTOR AND THE HEALTH [employer]LYTICS CONSULTANT FOR A FOLLOW UP APPOINTMENT TO CHECK HER HEART FAILURE AND INR AND SHE EXPRESSED UNDERSTANDING.STILL AWAITING FOR HER DAUGHTER TRISHA WHO IS ON HER WAY TO THE HOSPITAL AT THIS TIME TO PICK HER UP.
--- NOTE | 2018-01-08 15:05 | NUR ---
PATIENTS DAUGHTER TRISHA HERE AND PATIENT DISCHARGED WITH INSTRUCTIONS TO CALL FOR A FOLLOW UP APPOINTMENT WITH HER PICK UP MAN TO FOLLOW UP ON HER HEART FAILURE AND COUMADIN USE AND SHE EXPRESSED UNDERSTANDING.
[2018-01-09] MEDS ORDERED: WARFARIN SODIUM 4 MG TABLET PO SCH (17:00)
== END 2018-01-08 15:05 | disposition home health service (06) | DRG 291 ==
LOC: MED 16:12 → TELE 17:48
PROVIDERS: ADMIT Internal Medicine; ATTEND Internal Medicine
DX: I50.23 Acute on chronic systolic (congestive) heart failure (principal); E43 Unspecified severe protein-calorie malnutrition; G91.2 (Idiopathic) normal pressure hydrocephalus; I48.2 Chronic atrial fibrillation; Z79.01 Long term (current) use of anticoagulants; D53.9 Nutritional anemia, unspecified; Z95.2 Presence of prosthetic heart valve; E78.5 Hyperlipidemia, unspecified; E03.9 Hypothyroidism, unspecified; Z79.899 Other long term (current) drug therapy; R53.81 Other malaise; R26.9 Unspecified abnormalities of gait and mobility; S42.031D Displaced fracture of lateral end of right clavicle, subsequent encounter for fracture with routine healing; W19.XXXD Unspecified fall, subsequent encounter; Z96.653 Presence of artificial knee joint, bilateral; Z86.73 Personal history of transient ischemic attack (TIA), and cerebral infarction without residual deficits; E61.1 Iron deficiency; Z68.24 Body mass index [BMI] 24.0-24.9, adult; M48.061 Spinal stenosis, lumbar region without neurogenic claudication; G31.84 Mild cognitive impairment of uncertain or unknown etiology; S20.211D Contusion of right front wall of thorax, subsequent encounter; S00.83XD Contusion of other part of head, subsequent encounter; S70.01XD Contusion of right hip, subsequent encounter
CPT/HCPCS: 36415; 71045; 83735; 84100; 85025; 85610; 93005; 93307; 94640; 94664; 97165; J1650